=== PATIENT | male | born 1990 | race American Indian/Alaskan Native ===

== ENCOUNTER 2017-05-31 16:02 | Emergency (ER) | payer MEDICAID ==
--- NOTE | 2017-05-31 16:16 | EDPHY ---
H & P Time Seen by Provider: 05/31/17 16:03 HPI/ROS: CHIEF COMPLAINT: Altered mental status HISTORY OF PRESENT ILLNESS: Patient was found lying down in the street by a passerby. No evidence of trauma or injury at the scene per EMS. Normal pre-hospital glucose but nonverbal on arrival. Further history and review of systems unable as patient is nonverbal PAST MEDICAL HISTORY: Nonverbal on arrival Social history: Nonverbal on arrival General Appearance: Lethargic and will make noises but not words. Eyes: No scleral icterus. ENT, Mouth: Normal mucous membranes. No tongue laceration or abrasion. No head or neck trauma. Respiratory: Normal respiratory effort, breath sounds equal, lungs are clear to auscultation. Cardiovascular: Regular rate and rhythm. Gastrointestinal: Abdomen is soft and non tender. Neurological: Lethargic, spontaneous movement of all 4 extremities, will respond to commands. Skin: Abrasion on the left middle finger PIP joint but no other laceration or bruising or bleeding Musculoskeletal: No extremity deformity or tenderness and no spinal deformity or tenderness Psychiatric: Unable, nonverbal Emergency Department course/MDM: Labs to include CBC chemistry and ethanol. Serial clinical examination. 1903: Notified by the nurse the patient was found on the ground next to the bed. Does not on exam have any evidence externally of head trauma. Still appears relatively intoxicated and obtunded. Head and C-spine CT ordered ; 20% compression of T! all anterior, otherwise negative head and cspine CT, Mass[place] at 1942. Plan for serial clinical examination. 2211: Signed out to [facility] with plan for detox when clinically sober. Needs examination of his T1 region when clinically sober, to determine if this is new or old. (Izaiah Srivastava) Constitutional: Initial Vital Signs Temperature (C) 36.2 C 05/31/17 16:02 Heart Rate 85 05/31/17 16:02 Respiratory Rate 14 05/31/17 16:02 Blood Pressure 105/58 L 05/31/17 16:02 O2 Sat (%) 97 05/31/17 16:02 O2 Delivery Mode Room Air O2 (L/minute) 2 Allergies/Adverse Reactions: Unable to Assess Allergy (Unverified 05/31/17 16:25) Home Medications: Medication Instructions Recorded Unobtainable 05/31/17 Medical Decision Making - Diagnostics Imaging Results: Imaging Impressions Cervical Spine CT 05/31/17 19:07 Impression: Suboptimal study due to patient motion. No acute posttraumatic abnormality identified. 2. CT Cervical Spine Without Contrast, 7:15 PM History: Trauma. Fall. EtOH. Pain. Technique: Multislice helical CT through the cervical spine without contrast from the skull base to T1. Soft tissue and bone evaluation is performed. Sagittal and coronal reconstructions are obtained and reviewed. Dose reduction techniques were utilized. Findings: There is patient motion artifact. The patient's head is turned significantly toward the right and the patient's neck is prominently tilted toward the right. There is a 20% T1 compression fracture involving the superior endplate. The cervical thoracic junction remains normally aligned. No posterior element fractures are present at this level where the facet joints remain normally aligned. There is no significant prevertebral soft tissue hematoma. Cervical alignment is anatomic. No cervical fracture or dislocation is identified. The relationship between skull base and C1 is normal. The C1-C2 articulation is normally aligned. The odontoid process is intact. Disk spaces maintain their normal height . Facet joints are normally aligned, considering the head tilt. The cervical thoracic junction is normally aligned. Soft tissue window evaluation does not show evidence of epidural or prevertebral hematoma. Impression: 20% T1 compression of unknown age, possibly acute. Results called to Izaiah Srivastava at 7:40 PM.. Final results are concordant with the initial interpretation. General information for patients regarding this examination can be found at [email or web address]. If you have questions or comments about this report, please contact me at (hospital) or [phone] (cell). Head CT 05/31/17 19:07 Impression: Suboptimal study due to patient motion. No acute posttraumatic abnormality identified. 2. CT Cervical Spine Without Contrast, 7:15 PM History: Trauma. Fall. EtOH. Pain. Technique: Multislice helical CT through the cervical spine without contrast from the skull base to T1. Soft tissue and bone evaluation is performed. Sagittal and coronal reconstructions are obtained and reviewed. Dose reduction techniques were utilized. Findings: There is patient motion artifact. The patient's head is turned significantly toward the right and the patient's neck is prominently tilted toward the right. There is a 20% T1 compression fracture involving the superior endplate. The cervical thoracic junction remains normally aligned. No posterior element fractures are present at this level where the facet joints remain normally aligned. There is no significant prevertebral soft tissue hematoma. Cervical alignment is anatomic. No cervical fracture or dislocation is identified. The relationship between skull base and C1 is normal. The C1-C2 articulation is normally aligned. The odontoid process is intact. Disk spaces maintain their normal height . Facet joints are normally aligned, considering the head tilt. The cervical thoracic junction is normally aligned. Soft tissue window evaluation does not show evidence of epidural or prevertebral hematoma. Impression: 20% T1 compression of unknown age, possibly acute. Results called to Izaiah Srivastava at 7:40 PM.. Final results are concordant with the initial interpretation. General information for patients regarding this examination can be found at [email or web address]. If you have questions or comments about this report, please contact me at (hospital) or [phone] (cell). ED Course/Re-evaluation: 2218: Patient signed over to me at 10:00 p.m. Shift change. Patient pending sobriety. Serum alcohol level 5 await. 0449:AM: Patient ambulated well to the bathroom is now much more sober. He has no thoracic spine pain on exam. He is up using the bathroom. He has been here for close 13 hr sobering from his alcohol level 508. Will need to find appropriate ride home for him. He lives locally. (Cy Cabrera) Differential Diagnosis: Differential diagnosis considered for altered mental status including but not limited to hypoglycemia, infectious process, electrolyte abnormality, head injury and intoxicants. (Izaiah Srivastava) - Data Points Laboratory Results: Laboratory Results 05/31/17 16:15 05/31/17 16:15 05/31/17 16:15 Ethyl Alcohol 508 mg/dL H* mg/dL (0-10) Departure - Departure Disposition: Home, Routine, Self-Care Clinical Impression: Alcoholic intoxication Qualifiers: Complication of substance-induced condition: uncomplicated Qualified Code(s): F10.920 - Alcohol use, unspecified with intoxication, uncomplicated Condition: Good Instructions: Alcohol Intoxication (ED) Referrals: [facility],. [Clinic] - As per Instructions
[2017-05-31 16:27] LABS: PLATELET COUNT 329 10^3/uL (150-400)
[2017-06-01 02:35] VITALS: RESP 18; TEMP 97.5
[2017-06-01 06:18] VITALS: BP 132/82; PULSE 67; O2SAT 96
== END 2017-06-01 06:16 | disposition home or self-care (01) ==
LOC: EDBD 16:02
DX: F10.920 Alcohol use, unspecified with intoxication, uncomplicated (principal)
CPT/HCPCS: G0480